=== PATIENT | male | born 1980 | race Hispanic/Latino ===

== ENCOUNTER 2018-09-18 21:01 | Emergency (ER) | payer SELFPAY | END 2018-09-18 21:50 | disposition home or self-care (01) | LOC: ERS 21:01 | DX: M79.621 Pain in right upper arm (principal); Z87.891 Personal history of nicotine dependence | CPT/HCPCS: 99283 ==

== ENCOUNTER 2019-08-21 14:37 | Outpatient (CLI) | payer OTHER ==
--- NOTE | 2019-08-21 15:48 | ULT ---
FOCUSED ULTRASOUND OF THE RIGHT AXILLA: DATE: 08/21/2019. HISTORY: Palpable abnormality in the right axillary region. FINDINGS: Focused ultrasound of the right axilla is performed. There are numerous abnormally enlarged lymph no sergio measuring up to 3.8 cm. IMPRESSION: Right axillary lymphadenopathy. These findings are suspicious for potential malignancy, such as meta static disease or lymphoma. Utilizing a Hebrew interpreting service, these findings were related to the patient at 3:30 p.m. 07/27. Recommend surgical consultation for lymph node sampling/excision. CODE CR POS: OFF
--- NOTE | 2019-08-21 16:06 | MMO ---
Bilateral MAMMO Bilat Diag DDI+BEKAH. CLINICAL HISTORY: Patient is 39 years old and is seen for diagnostic exam and pain in the right breast. The patient has the following family history of breast cancer: mother, malignant (generic) and sister, malignant (generic). The patient has no personal history of cancer. VIEWS: The views performed were: bilateral craniocaudal with tomosynthesis; bilateral mediolateral oblique with tomosynthesis; and bilateral mediolateral with tomosynthesis. FILMS COMPARED: The present examination has been compared to a prior imaging study performed at [facility] on 08/21/2019. This study has been interpreted with the assistance of computer-aided detection. MAMMOGRAM FINDINGS: The breasts are almost entirely fat. Multiple enlarged lymph nodes are noted in the right axilla, in the area of palpable concern. No abnormality of the breast present. In the left breast, there are no suspicious masses, calcifications or areas of architectural distortion. IMPRESSION: FINDING IN THE RIGHT BREAST IS SUSPICIOUS. BIOPSY IS RECOMMENDED. Lymphadenopathy in the right axilla noted. CT examination and consideration for surgical consultation advised. THE RESULTS OF THIS EXAM WERE SENT TO THE PATIENT. ACR BI-RADS Category 4 - Suspicious abnormality - biopsy should be considered MAMMOGRAPHY NOTE: 1. A negative mammogram report should not delay a biopsy if a dominant of clinically suspicious mass is present. 2. Approximately 10% to 15% of breast cancers are not detected by mammography. 3. Adenosis and dense breasts may obscure an underlying neoplasm. Reported by: BARBARA BARRIENTOS MD Electonically Signed: [id number]
--- NOTE | 2019-08-21 16:29 | RAD ---
KUB: Indication: Abnormal findings. Comparison: None. FINDINGS: Bowel gas pattern is unobstructed. No suspicious calcifications are evident. No acute osseous abnorma lity noted. IMPRESSION: No acute abnormality. POS: CET
--- NOTE | 2019-08-21 16:32 | RAD ---
PA AND LATERAL CHEST: History: History of abnormal lung geller. Comparison: None. FINDINGS: The lungs are clear. Heart size is normal. No acute osseous abnormality is evident. IMPRESSION: No acute abnormality. No suspicious pulmonary nodule, pleural effusion or parenchymal opacity noted. If there remains further clinical concern, CT of the thorax is recommended. POS: CET
== END 2019-08-21 14:38 | disposition home or self-care (01) ==
LOC: BICMAMMO 14:37
PROVIDERS: ATTEND Family Medicine
DX: N63.11 Unspecified lump in the right breast, upper outer quadrant (principal); R91.8 Other nonspecific abnormal finding of lung field; R93.5 Abnormal findings on diagnostic imaging of other abdominal regions, including retroperitoneum; R59.1 Generalized enlarged lymph nodes; Z80.3 Family history of malignant neoplasm of breast
CPT/HCPCS: 71046; 74018; 77066; G0279

== ENCOUNTER 2019-09-22 07:23 | Outpatient (CLI) | payer OTHER ==
[2019-09-22 08:47] LABS: #Eosinphils 0.2 thou/uL (0.0-0.7); #Lymphocytes 1.7 thou/uL (1.20-3.40); #Monocytes 0.6 thou/uL (0.11-0.59); #Neutrophils 5.5 thou/uL (1.40-6.50); %Basophils 0.3 % (0.0-1.0); %Eosinophils 2.4 % (0.0-10.0); %Lymphocytes 21.5 % (21.0-51.0); %Neutrophils 68.7 % (42.0-75.0); Mean Corpuscular HGB CONC 35.3 g/dL (32.0-36.0); Mean Corpuscular Hemoglobin 31.4 pg (27.0-31.0); Mean Platelet Volume 7.2 fL (7.4-10.4); Platelet Count 253 thou/uL (130-400); RBC Distribution Width 11.1 % (11.5-14.5); Red Blood Cell (RBC) Count 4.76 mill/uL (4.70-6.10); White Blood Cell (WBC) Count 8.1 thou/uL (4.8-10.8)
[2019-09-22 09:22] LABS: Anion Gap 14 mmol/L (10-20); BUN (Urea Nitrogen) 10 mg/dL (8.9-20.6); Calc. Creatinine Clearance 0 mL/min (70-130); Calcium 9.4 mg/dL (7.8-10.44); Carbon Dioxide 22 mmol/L (22-29); Chloride 106 mmol/L (98-107); Estimated GFR-MDRD Greater than 90; Glucose 104 mg/dL (70-105); Potassium 4.3 mmol/L (3.5-5.1); Sodium 138 mmol/L (136-145)
== END 2019-09-22 07:24 | disposition home or self-care (01) ==
LOC: LABBT 07:23
PROVIDERS: ATTEND Surgery
DX: Z01.812 Encounter for preprocedural laboratory examination (principal); R59.0 Localized enlarged lymph nodes
CPT/HCPCS: 80048; 85025

== ENCOUNTER 2019-09-29 11:42 | Day surgery (SDC) | payer OTHER ==
[2019-09-22 08:06] VITALS: BMI 34.3
[~2019-09-29 11:42] MED LIST: Dexamethasone 20 MG/5 ML VIAL ONE; Lidocaine 1% PF 5 ML VIAL ONE; Ondansetron PF 4 MG/2 ML Vial ONE; PROPOFOL 200 MG/20 ML VIAL ONE
[2019-09-29] MEDS ORDERED: Bupivacaine 0.25% HCL 30 ML VIAL ONE (12:56)
[2019-09-29] MEDS ORDERED: Lidocaine 2% w/Epinephrine 1:200K 20 ML VIAL ONE ×2 (12:56)
[2019-09-29] MEDS ORDERED: EPINEPHrine 1 MG/ML AMP ONE (12:56)
[2019-09-29] MEDS ORDERED: Fentanyl 100 MCG/2 ML VIAL ONE (13:01)
[2019-09-29] MEDS ORDERED: HYDROcodone/Acetaminophen 5/325 mg Tablet ONE ×2 (16:32→17:01)
--- NOTE | 2019-09-29 16:45 | PDOC.OP ---
Operative Note - Operative Note Operative Note: PROCEDURE: Partial excision of right axillary lymph node SURGEON: Kevin Dubois M.D. DATE: 09/29/2019 PREOPERATIVE DIAGNOSIS: Right axillary lymphadenopathy POSTOPERATIVE DIAGNOSIS: Right axillary lymphadenopathy HISTORY: Patient with an enlarged tender right axillary lymph node for over a month. This has not responded to antibiotics. Core biopsy was unsuccessful as the mass was difficult to penetrate with core biopsy needle due to its position deep in the axilla and its mobility. FNA was suggestive of a reactive process. Due to nonresolution recommendation was made to proceed with excisional biopsy. FINDINGS: Firm rubbery enlarged lymph node with intense desmoplastic reaction making complete excision inadvisable. PROCEDURE IN DETAIL: After informed consent was obtained and appropriate preoperative antibiotics administered the patient was taken to the operating room and placed in supine position. General anesthesia was administered he was prepped and draped in standard sterile fashion. Local anesthesia was infused to the skin and subcutaneous tissues overlying the palpable mass. By ultrasound this was a least 2 cm deep to the skin and was rounded with loss of fatty hilum. Dissection was carried down to the lymph node with difficulty due to dense desmoplastic reaction surrounding the lymph node. The fatty tissues and the pectoral muscle were extremely difficult to distinguish from one another due to their abnormal thickening and fibrosis and were both densely adherent to the underlying lymph node which was difficult to graft due to its firm rubbery nature. Due to the dense desmoplastic reaction it was felt that complete excision of the lymph node would be hazardous since there was a sizable vein in fairly close proximity to the lymph node by ultrasound, and identification of surrounding structures was basically impossible. Therefore the superficial half of the lymph node was excised and sent fresh to pathology for flow cytometry and histopathology, with a small portion sent to microbiology for AFB fungal and standard cultures. There was venous oozing from the cut surface of the lymph node which was controlled with Bovie electrocautery and Roland. Additional local anesthesia was infused to the surrounding tissues for postoperative pain control. Once hemostasis was verified the subcutaneous tissues were reapproximated with interrupted 3-0 Monocryl sutures and the skin was closed with a running 4-0 subcuticular Monocryl suture. Dermabond dressings were placed and once this was dry a pressure dressing was placed. Estimated blood loss was 50 mL's. There were no complications. Specimen is superficial portion of right axillary lymph node.
[2019-10-04 13:58] LABS: Fungus Stain Final report (.)
== END 2019-09-29 17:40 | disposition home or self-care (01) ==
LOC: SDC 11:42
PROVIDERS: ATTEND Surgery
PROC: 07B50ZZ Excision of Right Axillary Lymphatic, Open Approach (ICD-10-PCS; principal; 2019-09-29)
DX: C81.04 Nodular lymphocyte predominant Hodgkin lymphoma, lymph nodes of axilla and upper limb (principal)
CPT/HCPCS: 87070; 87102; 87116; 87205; 87206; 88184; 88307; 88341; 88342; 88360; J0171; J0690; J1100; J2001; J2405; J2704; J3010; S0020

== ENCOUNTER 2019-10-19 10:38 | Outpatient (CLI) | payer OTHER ==
--- NOTE | 2019-10-19 12:10 | CT ---
EXAM: CT chest, abdomen, and pelvis with IV contrast: HISTORY: Nodular lymphocyte predominant Hodgkin's lymphoma. Staging evaluation. COMPARISON: None FINDINGS: CT THORAX: Lungs: An 8 mm x 5 mm pleural-based nodular density is seen along the anterior aspect of the minor fi ssure which could represent an intrapleural lymph node. There are irregular linear densities seen at the posteromedial right lung base and in the left upper lobe and the posterior aspect of the lingu la which may represent focal areas of mild scarring. Pleura: No pleural effusion. Lymph nodes: There are multiple enlarged right axillary lymph nodes seen largest measuring 2.9 cm in short axis dimension. However, there is also a larger lymph node with low density area present peripherally within this enlarged lymph node which measures 4.9 cm x 2.5 cm. Low-density area measure s 2.6 cm and likely related to necrosis. However, there is a punctate focus of gas within the presumed area of necrosis. Adjacent inflammatory stranding is seen. These findings could be related t o recent biopsy, but infection is not excluded. Correlation for recent biopsy is ready commended. Mediastinum: No acute process of the mediastinal structures. Chest wall: Linear density is seen in the right brachial and axillary vein most likely representing c ontrast layering dependently within the vein. CT ABDOMEN AND PELVIS: Liver: Within normal limits. Gallbladder: Within normal limits. \ Pancreas: Within normal limits. Spleen: Within normal limits. Adrenal glands: Within normal limits. Kidneys: Within normal limits. Urinary Bladder: Decompressed. Reproductive organs: Within normal limits for patient's age. Bowel: A few colonic diverticula are seen scattered within the descending and sigmoid colon. Loops of small bowel are normal in caliber. Adenopathy:No lymphadenopathy within the abdomen or pelvis. Peritoneum: No free fluid or fluid collection is seen. No free intraperitoneal gas is identified. Abdominal wall: No abnormalities seen. Osseous structures: Bilateral pars defects are seen at L5 with trace anterolisthesis of L5 on S1. Dis c degenerative changes are present at this level. No lytic or sclerotic osseous lesions are appreciated. IMPRESSION: 1. Right axillary lymphadenopathy with multiple enlarged right axillary lymph nodes present. One of t he larger lymph nodes demonstrates a low attenuation area within the lymph node with punctate focus of gas present. This may represent necrotic lymph node. Focus of gas could be related to recent biops y as there is adjacent inflammatory stranding, but developing infection cannot be excluded. 2. Nodular density which is pleural-based along the anterior aspect of the minor fissure which may re present an intrapleural lymph node. 3. No enlarged or increased number of lymph nodes are seen in the abdomen or pelvis. 4. Spondylolisthesis lumbosacral junction.
[2019-10-19] MEDS ORDERED: Iopamidol-370 76% 500 ML 1 ML ONE (13:41)
== END 2019-10-19 10:39 | disposition home or self-care (01) ==
LOC: BICCT 10:38
PROVIDERS: ATTEND Internal Medicine Hematology & Oncology
DX: C81.04 Nodular lymphocyte predominant Hodgkin lymphoma, lymph nodes of axilla and upper limb (principal)
CPT/HCPCS: 71260; 74177; Q9967

== ENCOUNTER 2019-10-24 07:14 | Outpatient (CLI) | payer OTHER ==
--- NOTE | 2019-10-24 12:37 | PET ---
Radionucleotide PET scan with CT attenuation correction HISTORY: Nodular lymphocyte predominant Hodgkin's lymphoma. Initial staging. FINDINGS: Physiologic uptake of radiotracer throughout the enteric system and along each urinary trac t. Intense activity associated with enlarged lymph nodes throughout the right axilla. Maximum SUV 17.9. Hypermetabolic activity is also associated with slightly enlarged right prepectoral lymph nodes, maximum issue be 5.2. A nonenlarged right supraclavicular lymph node shows increased activity maximum SUV 3.0. No abnormal activity is evident within the lungs, with particular attention paid to areas of small no dules in the right lung detailed on CT exam 10/19/2019. Uptake SUV average throughout the liver is 1.9. IMPRESSION : Hypermetabolic adenopathy limited to the right chest. Deauville score 5.
== END 2019-10-24 07:15 | disposition home or self-care (01) ==
LOC: PET 07:14
PROVIDERS: ATTEND Internal Medicine Hematology & Oncology
DX: C81.00 Nodular lymphocyte predominant Hodgkin lymphoma, unspecified site (principal); R59.0 Localized enlarged lymph nodes
CPT/HCPCS: 78815; A9552

== ENCOUNTER 2020-05-02 10:51 | Outpatient (CLI) | payer OTHER ==
--- NOTE | 2020-05-02 12:07 | PET ---
EXAM: PET/CT HISTORY: Hodgkin's lymphoma. TECHNIQUE: PET scanning with CT attenuation correction was performed from the base of the brain to the proximal thighs following the intravenous administration of 11.4 millicuries [id number]. COMPARISON: PET/CT dated October 24, 2019. FINDINGS: Biodistribution:The biodistribution for the exam appears acceptable. Head and neck: There is appropriate background activity within the brain. The hypermetabolic lymph no de previously seen within the posterior cervical chain is no longer identified. No hypermetabolic lymphadenopathy or soft tissue mass is evident. Thorax: The majority of the hypermetabolic lymph nodes seen within the right axilla have resolved. Th ere is a residual 2.1 cm anterior right axillary lymph node previously measuring 2.9 cm that has a peak activity of 2.33 and a mean activity 1.93. Previously this lymph node and a peak activity of 7.4 and a mean activity of 6.27. There is some mild reticulation within the fat of the right axilla likely related to therapy. 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 Previously seen hypermetabolic enlarged lymph nodes seen along the axillary and subclavian chain are no longer identified. No hypermetabolic medias tinal or hilar lymphadenopathy is evident. No hypermetabolic pleural effusion is demonstrated. No hypermetabolic pulmonary nodule is noted. Abdomen and pelvis: There is expected background activity within the GI and systems. No hypermetab olic mass, lymphadenopathy or ascites is present. There is fatty infiltration of the liver. Osseous structures and skin: No hypermetabolic skin or osseous lesion is evident. There are bilateral pars defects at L5. IMPRESSION: 1. Enlarged right anterior axillary lymph node with mild increased metabolic uptake consistent with a Deauville score of 2. Findings are consistent with partial response to therapy. 2. Majority of the hypermetabolic lymph nodes within the right axilla, right subclavian chain, and ri ght posterior cervical chain are no longer identified. Transcribed Date/Time: 05/02/2020 1:17 PM
== END 2020-05-02 10:52 | disposition home or self-care (01) ==
LOC: PET 10:51
PROVIDERS: ATTEND Radiology Radiation Oncology
DX: C81.90 Hodgkin lymphoma, unspecified, unspecified site (principal); R59.0 Localized enlarged lymph nodes
CPT/HCPCS: 78815; A9552

== ENCOUNTER 2020-10-31 07:39 | Outpatient (CLI) | payer BC ==
[2020-10-31] MEDS ORDERED: Iopamidol-370 76% 500 ML 1 ML ONE (11:16)
== END 2020-10-31 07:40 | disposition home or self-care (01) ==
LOC: BICCT 07:39
PROVIDERS: ATTEND Internal Medicine Hematology & Oncology
DX: C81.04 Nodular lymphocyte predominant Hodgkin lymphoma, lymph nodes of axilla and upper limb (principal); R59.0 Localized enlarged lymph nodes; K76.0 Fatty (change of) liver, not elsewhere classified; S22.42XA Multiple fractures of ribs, left side, initial encounter for closed fracture; M43.16 Spondylolisthesis, lumbar region
CPT/HCPCS: 71260; 74177; Q9967

== ENCOUNTER 2020-11-12 07:42 | Outpatient (CLI) | payer BC | END 2020-11-12 07:43 | disposition home or self-care (01) | LOC: PET 07:42 | PROVIDERS: ATTEND Internal Medicine Hematology & Oncology | DX: C85.94 Non-Hodgkin lymphoma, unspecified, lymph nodes of axilla and upper limb (principal); R59.0 Localized enlarged lymph nodes | CPT/HCPCS: 78815; A9552 ==

== ENCOUNTER 2021-01-10 13:39 | Outpatient (CLI) | payer BC | END 2021-01-10 13:40 | disposition home or self-care (01) | LOC: ULT 13:39 | PROVIDERS: ATTEND Internal Medicine Hematology & Oncology | DX: Z51.11 Encounter for antineoplastic chemotherapy (principal); C81.04 Nodular lymphocyte predominant Hodgkin lymphoma, lymph nodes of axilla and upper limb; Z79.899 Other long term (current) drug therapy | CPT/HCPCS: 93306 ==

== ENCOUNTER 2021-01-14 16:48 | Outpatient (CLI) | payer BC ==
[2021-01-14 17:36] LABS: #Eosinphils 0.2 10x3/uL (0.0-0.5); #Monocytes 0.6 10x3/uL (0.0-1.1); #Neutrophils 3.5 10x3/uL (1.5-8.4); %Basophils 0.4 % (0.0-2.0); %Eosinophils 3.7 % (0.0-6.0); %Lymphocytes 20.8 % (18.0-47.0); %Monocytes 10.4 % (0.0-10.0); Hemoglobin 14.7 g/dL (13.5-17.5); Mean Corpuscular HGB CONC 34.9 g/dL (32.0-36.0); Mean Corpuscular Hemoglobin 30.8 pg (27.0-33.0); Mean Corpuscular Volume 88.1 fl (81.2-95.1); Mean Platelet Volume 9.8 fl (7.4-10.4); Platelet Count 243 10x3/uL (150-450); RBC Distribution Width 11.9 % (11.5-14.5); Red Blood Cell (RBC) Count 4.78 10x6/uL (4.32-5.72); White Blood Cell (WBC) Count 5.4 10x3/uL (3.5-10.5)
[2021-01-14 17:48] LABS: Sodium 139 mmol/L (136-145)
[2021-01-14 17:49] LABS: Anion Gap 14 mmol/L (10-20); BUN (Urea Nitrogen) 13 mg/dL (8.9-20.6); Calc. Creatinine Clearance 0 mL/min (70-130); Calcium 9.4 mg/dL (7.8-10.44); Carbon Dioxide 23 mmol/L (22-29); Chloride 106 mmol/L (98-107); Glucose 93 mg/dL (70-105); Potassium 4.1 mmol/L (3.5-5.1)
== END 2021-01-14 16:49 | disposition home or self-care (01) ==
LOC: LABBT 16:48
PROVIDERS: ATTEND Surgery
DX: Z01.812 Encounter for preprocedural laboratory examination (principal); C85.90 Non-Hodgkin lymphoma, unspecified, unspecified site; Z20.822 Contact with and (suspected) exposure to COVID-19
CPT/HCPCS: 80053; 82248; 83615; 84100; 84550; 85025

== ENCOUNTER 2021-03-18 08:19 | Outpatient (CLI) | payer BC | END 2021-03-18 08:20 | disposition home or self-care (01) | LOC: PET 08:19 | PROVIDERS: ATTEND Internal Medicine Hematology & Oncology | DX: C81.04 Nodular lymphocyte predominant Hodgkin lymphoma, lymph nodes of axilla and upper limb (principal); R91.1 Solitary pulmonary nodule | CPT/HCPCS: 78815; A9552 ==

== ENCOUNTER 2021-05-01 08:42 | Outpatient (CLI) | payer BC | END 2021-05-01 08:43 | disposition home or self-care (01) | LOC: BICCT 08:42 | PROVIDERS: ATTEND Internal Medicine Hematology & Oncology | DX: C81.04 Nodular lymphocyte predominant Hodgkin lymphoma, lymph nodes of axilla and upper limb (principal); R91.8 Other nonspecific abnormal finding of lung field; R59.0 Localized enlarged lymph nodes; K76.0 Fatty (change of) liver, not elsewhere classified; J98.4 Other disorders of lung | CPT/HCPCS: 71250 ==

== ENCOUNTER 2021-05-13 07:43 | Outpatient (CLI) | payer BC | END 2021-05-13 07:44 | disposition home or self-care (01) | LOC: PET 07:43 | PROVIDERS: ATTEND Internal Medicine Hematology & Oncology | DX: C85.90 Non-Hodgkin lymphoma, unspecified, unspecified site (principal); K76.0 Fatty (change of) liver, not elsewhere classified; J18.9 Pneumonia, unspecified organism; R91.8 Other nonspecific abnormal finding of lung field | CPT/HCPCS: 78815; A9552 ==

== ENCOUNTER 2022-09-28 07:39 | Outpatient (CLI) | payer BC ==
[2022-09-28] MEDS ORDERED: Iopamidol-370 76% 500 ML 1 ML ONE (09:27)
== END 2022-09-28 07:40 | disposition home or self-care (01) ==
LOC: BICCT 07:39
PROVIDERS: ATTEND Internal Medicine Hematology & Oncology
DX: C81.04 Nodular lymphocyte predominant Hodgkin lymphoma, lymph nodes of axilla and upper limb (principal)
CPT/HCPCS: 71260; 74177; Q9967